=== PATIENT | male | born 1965 ===

== ENCOUNTER 2019-04-13 07:53 | Emergency (ER) | payer MEDICAID ==
[~2019-04-13] VITALS: Ht 180.3 cm; Wt 79.5 kg
[2019-04-13] MEDS ORDERED: LOSA100T2 PO (08:06)
--- NOTE | 2019-04-13 08:10 | NUR ---
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 IV ESTABLISHED FENTANYL ADMINISTERED EN ROUTE, PAIN NOW 6/ PER PATIENT. WC. DENIES RECENT TRAVEL/CARDIAC HX/SURGERIES. ADVISORY INTERN ON PATIENT, NADN. A+OX4. SPEAKING FULL SENTENCES, 87% RA UPON ARRIVAL POST PAIN MEDICATION, SUPPLEMENTAL O2 APPLIED, NOW 98% 2L NC. AWAITING MD ORDERS, CALL LIGHT WITHIN REACH.
[2019-04-13 09:41] VITALS: BP 117/78
--- NOTE | 2019-04-13 09:43 | NUR ---
Patient/Caregiver given discharge instructions and they have confirmed that they understand the instructions. Patient ambulatory with steady gait. Pt left in NAD with all personal belongings.
== END 2019-04-13 09:45 | disposition home or self-care (01) ==
LOC: ED 08:30
DX: R07.89 Other chest pain (principal); I10 Essential (primary) hypertension
CPT/HCPCS: 71046; 93005; 99283